=== PATIENT | female | born 1985 | race African-American/Black ===

== ENCOUNTER 2017-11-28 21:12 | Emergency (ER) | payer OTHER ==
[~2017-11-28] VITALS: Ht 172.7 cm; Wt 77.1 kg
[2017-11-28 21:15] VITALS: BP 149/101
--- NOTE | 2017-11-28 22:38 | NUR ---
DR. RIVERA AT BEDSIDE FOR EVAL.
--- NOTE | 2017-11-28 22:44 | NUR ---
URINE COLLECTED. SENT TO LAB
--- NOTE | 2017-11-28 22:59 | NUR ---
RADIOLOGY AT BEDSIDE FOR CXR
== END 2017-11-28 23:55 | disposition home or self-care (01) ==
LOC: ER 21:18
DX: J06.9 Acute upper respiratory infection, unspecified (principal); J45.909 Unspecified asthma, uncomplicated
CPT/HCPCS: 71045-TC; 84703-TC; A4606; Z7610